=== PATIENT | female | born 1940 | race Caucasian/White ===

== ENCOUNTER 2020-01-05 21:16 | Emergency (ER) | payer MEDICARE, BC ==
[~2020-01-05] VITALS: Ht 162.6 cm; Wt 61.2 kg
--- NOTE | 2020-01-05 21:20 | NUR ---
Dr. Blackwood at bedside for MSE.
[2020-01-05] MEDS ORDERED: EPINEPHRINE-PF 1:1000 1 MG/ML AMPUL IV ONE ×2 (21:30)
[2020-01-05] MEDS ORDERED: EPINEPHRINE 1 MG/1 ML AMP ONE (21:31)
--- NOTE | 2020-01-05 21:50 | NUR ---
Patient discharged to home in stable condition. Written and verbal after care instructions given. Patient verbalizes understanding of instructions. Stressed follow up or return to ER for worsening s/s. Patient ambulated out of ER with steady gait, no acute signs of distress, VSS, all belongings taken.
[2020-01-05 21:51] VITALS: BP 107/62
== END 2020-01-05 21:55 | disposition home or self-care (01) ==
LOC: ER 21:18
DX: S61.211A Laceration without foreign body of left index finger without damage to nail, initial encounter (principal); W26.0XXA Contact with knife, initial encounter; Y92.511 Restaurant or cafe as the place of occurrence of the external cause
CPT/HCPCS: 12001; 99283; J0171; A4663

== ENCOUNTER 2020-01-06 14:10 | Emergency (ER) | payer MEDICARE, BC ==
[~2020-01-06] VITALS: Ht 162.6 cm; Wt 61.2 kg
--- NOTE | 2020-01-06 14:47 | NUR ---
PT WAS EVALUATED BY DR RODRIGUEZ. PT WAS D/C 'd TO HOME. D/C INSTRUCTIONS GIVEN TO THE PT.
[2020-01-06 14:48] VITALS: BP 139/71
== END 2020-01-06 14:49 | disposition home or self-care (01) ==
LOC: ER 14:10
DX: S61.211A Laceration without foreign body of left index finger without damage to nail, initial encounter (principal); W26.0XXA Contact with knife, initial encounter; Y93.G9 Activity, other involving cooking and grilling; Y92.511 Restaurant or cafe as the place of occurrence of the external cause
CPT/HCPCS: A4663